=== PATIENT | male | born 1975 | race Caucasian/White ===

== ENCOUNTER 2024-03-16 10:24 | Emergency (ER) | payer OTHER ==
[~2024-03-16 10:24] MED LIST: hydrALAZINE 20 MG/ML 1 ML VIAL IV ONE
[2024-05-02 11:04] LABS: ALBUMIN 4.3 g/dL (3.5-5.0); ALT/SGPT 28 U/L (0-55); AST-SGOT 25 U/L (5-34); CALCIUM 9.3 mg/dL (8.3-10.5); CARBON DIOXIDE 21 mmol/L (22-29); GLUCOSE 108 mg/dL (75-110); SODIUM 138 mmol/L (136-145); TOTAL PROTEIN 7.2 g/dL (6.4-8.3)
[2024-05-02 11:05] LABS: TROPONIN-I < 0.030 ng/mL (0.00-0.033)
[2024-05-02 11:08] LABS: BASO # 0.03 K/mm3 (0.02-0.10); EOS # 0.13 K/mm3 (0.04-0.40); EOS % 1.6 % (0.0-4.0); HEMATOCRIT 47.4 % (42.0-52.0); HEMOGLOBIN 15.9 g/dL (13.5-18.0); LYMPH# 1.29 K/mm3 (1.50-4.00); MEAN CELL VOLUME 85 fl (78-100); MEAN CORPUSCULAR HEMOGLOBIN 28 pg (27-31); MEAN CORPUSCULAR HGB CONC 34 g/dL (33-37); MEAN PLATELET VOLUME 10.9 fl (7.4-10.4); PLATELET COUNT 252 K/mm3 (130-400); RED BLOOD COUNT 5.61 M/mm3 (4.20-5.60); RED CELL DISTRIBUTION WIDTH 12.9 % (11.5-14.5)
== END 2024-03-16 12:18 | disposition home or self-care (01) ==
LOC: ED 10:24
PROVIDERS: Family Medicine
DX: I16.0 Hypertensive urgency (principal)
CPT/HCPCS: J0360